=== PATIENT | female | born 1990 | race American Indian/Alaskan Native ===

== ENCOUNTER 2020-04-16 15:08 | Emergency (ER) | payer SELFPAY ==
[2020-04-16 15:24] VITALS: BP 123/78
[2020-04-16 17:01] LABS: Bilirubin,Urine NEG (Negative); Blood,Urine SM (Negative); Color,Urine Yellow (Yellow); Mucus,Urine FEW /HPF; Protein,Urine <15 mg/dL mg/dL (Negative)
[2020-04-16] MEDS ORDERED: FAMOTIDINE 20 MG TAB PO ONE (20:01)
[2020-04-16] MEDS ORDERED: oxyCODONE /ACETAMINOPHEN 5-325MG TAB PO ONE (20:01)
[2020-04-16] MEDS ORDERED: IBUPROFEN 600 MG TAB PO ONE (20:01)
[2020-04-16] MEDS ORDERED: ONDANSETRON 4 MG ODT TAB PO ONE (20:01)
[2020-04-16 20:37] LABS: Basophils % (Auto) 0.4 % (0.0-1.8); Eosinophils # (Auto) 0.1 K/mm3 (0.0-0.4); Eosinophils % (Auto) 0.8 % (0.0-4.3); Hematocrit 27.6 % (30.3-42.9); Hemoglobin 8.9 gm/dl (10.1-14.3); Lymphocytes # (Auto) 2.2 K/mm3 (1.2-5.4); Lymphocytes % (Auto) 22.7 % (13.4-35.0); Mean Corpuscular HGB Conc 32 % (30-34); Mean Corpuscular Volume 67 fl (79-97); Monocytes # (Auto) 0.5 K/mm3 (0.0-0.8); Monocytes % (Auto) 5.3 % (0.0-7.3); Platelet Count 540 K/mm3 (140-440); Red Blood Count 4.11 M/mm3 (3.65-5.03); Red Cell Distribution Width 21.2 % (13.2-15.2)
[2020-04-16 20:46] LABS: Albumin 3.7 g/dL (3.9-5); Blood Urea Nitrogen 13 mg/dL (7-17); Calcium 9.2 mg/dL (8.4-10.2); Hemolysis Index 0
[2020-04-16 20:57] LABS: Alanine Aminotransferase < 5 units/L (7-56); BUN/Creatinine Ratio 22
--- NOTE | 2020-04-16 21:48 | Ultrasound Report ---
EXAMINATION: Complete pelvic ultrasound, 04/16/2020 CLINICAL INFORMATION: Pelvic pain. Uterine fibroids. COMPARISON: None. FINDINGS: The uterus is enlarged measuring 16.9 x 9.7 x 13.3. The uterus is diffusely heterogeneous a nd contains multiple solid masses. The largest of these masses measures 8.1 x 7.3 cm. The endometrial complex is not clearly visualized. There is a trace amount of free pelvic fluid. The adnexal regions are not well visualized. IMPRESSION: 1. Enlarged heterogeneous uterus containing multiple masses most likely representing multiple fibroi ds. Signer Name: Joseline Bragg MD Signed: 04/16/2020 9:44 PM Workstation Name: [id number]
--- NOTE | 2020-04-16 21:57 | Emergency Department Report ---
ED Abdominal Pain HPI - General Chief Complaint: Abdominal Pain Stated Complaint: ABD PAIN Source: patient Mode of arrival: Ambulatory Limitations: No Limitations - History of Present Illness Initial Comments: Patient is a nulliparous 29-year-old -[place] female with a history of chronic uterine fibroids who presents to the ED with worsening diffuse abdominal pain with distention and nausea for the last 3 days. Patient states that she has a history of uterine fibroids and is currently on Depo-Provera injections every 3 months per her [employer] physician. Patient states that her pain in the abdomen has worsened in the last 3 days such that any movement or ambulation makes the pain worse. Patient states that she has not been able to eat or sleep because of abdominal pain and distention. Patient denies vaginal bleeding, vaginal discharge, dysuria, urinary frequency and urgency, dyspareunia, low back pain, fever, chills, cough, chest pain, shortness of breath, vomiting or diarrhea. MD Complaint: abdominal pain, other (history of chronic uterine fibroids) -: Gradual, month(s) (3) Location: suprapubic Radiation: none Migration to: no migration Severity: severe Severity scale (0 -10): 10 Quality: cramping, aching, sharp Consistency: constant Improves With: nothing Worsens With: movement Context: other (chronic uterine fibroids) Associated Symptoms: nausea, anorexia. denies: denies other symptoms, vomiting, diarrhea, fever, chills, constipation, dysuria, melena, hematuria, syncope, other - Related Data LMP Date: 03/22/20 Previous Rx's Medication Instructions Recorded Last Taken Type Naproxen 500 mg PO Q12H PRN #30 tablet 04/16/20 Unknown Rx Ondansetron [Zofran Odt] 4 mg PO Q6HR PRN #15 tab.rapdis 04/16/20 Unknown Rx tiZANidine [Zanaflex 4mg TAB] 4 mg PO Q8H PRN #21 tablet 04/16/20 Unknown Rx traMADoL [Ultram] 50 mg PO Q6HR PRN #12 tablet 04/16/20 Unknown Rx Allergies Allergy/AdvReac Type Severity Reaction Status Date / Time No Known Allergies Allergy Unverified 04/16/20 15:20 ED Review of Systems ROS: Stated complaint: ABD PAIN Other details as noted in HPI Constitutional: denies: chills, fever Eyes: denies: eye pain, eye discharge, vision change ENT: denies: ear pain, throat pain Respiratory: denies: cough, shortness of breath, wheezing Cardiovascular: denies: chest pain, palpitations Endocrine: no symptoms reported Gastrointestinal: abdominal pain (Periumbilical and suprapubic), nausea. denies: vomiting, diarrhea, constipation, hematemesis, hematochezia Genitourinary: denies: urgency, dysuria, frequency, hematuria, discharge, abnormal menses, dyspareunia Musculoskeletal: arthralgia (posterior neck muscle pain), myalgia. denies: back pain, joint swelling Skin: denies: rash, lesions Neurological: denies: headache, weakness, paresthesias Psychiatric: denies: anxiety, depression Hematological/Lymphatic: denies: easy bleeding, easy bruising ED Past Medical Hx - Past Medical History Previous Medical History?: Yes Additional medical history: FIBRIODS - Surgical History Past Surgical History?: No - Medications Home Medications: Home Medications Medication Instructions Recorded Confirmed Last Taken Type Naproxen 500 mg PO Q12H PRN #30 tablet 04/16/20 Unknown Rx Ondansetron [Zofran Odt] 4 mg PO Q6HR PRN #15 tab.rapdis 04/16/20 Unknown Rx tiZANidine [Zanaflex 4mg TAB] 4 mg PO Q8H PRN #21 tablet 04/16/20 Unknown Rx traMADoL [Ultram] 50 mg PO Q6HR PRN #12 tablet 04/16/20 Unknown Rx ED Physical Exam - General Limitations: No Limitations General appearance: alert, in no apparent distress - Head Head exam: Present: atraumatic, normocephalic, normal inspection - Eye Eye exam: Present: normal appearance, PERRL, EOMI Pupils: Present: normal accommodation - ENT ENT exam: Present: normal exam, normal orophraynx, mucous membranes moist, TM's normal bilaterally, normal external ear exam - Neck Neck exam: Present: normal inspection, tenderness (Palpable cervical paraspinal musculoskeletal tenderness), full ROM - Respiratory Respiratory exam: Present: normal lung sounds bilaterally. Absent: respiratory distress, wheezes, rales, rhonchi, chest wall tenderness, accessory muscle use, decreased breath sounds, prolonged expiratory - Cardiovascular Cardiovascular Exam: Present: regular rate, normal rhythm, normal heart sounds. Absent: systolic murmur, diastolic murmur, rubs, gallop - GI/Abdominal GI/Abdominal exam: Present: soft, tenderness (Palpable diffuse abdominal tenderness due to a grossly palpable tender mass extending from the suprapubic to periumbilical area), normal bowel sounds, mass (Large palpable tender mass in the abdomen extending from the suprapubic to the periumbilical area). Absent: guarding, rebound - Bi-manual exam: Present: other (Pelvic exam deferred) - Extremities Exam Extremities exam: Present: normal inspection, full ROM, normal capillary refill. Absent: pedal edema, joint swelling, calf tenderness, other - Back Exam Back exam: Present: normal inspection, full ROM. Absent: tenderness, CVA tenderness (R), CVA tenderness (L), muscle spasm, paraspinal tenderness, verte bral tenderness - Neurological Exam Neurological exam: Present: alert, oriented X3, CN II-XII intact, normal gait, reflexes normal - Psychiatric Psychiatric exam: Present: normal affect, normal mood - Skin Skin exam: Present: warm, dry, intact, normal color. Absent: rash ED Course Vital Signs 04/16/20 15:22 Temperature 98.5 F Pulse Rate 99 H Respiratory 18 Rate Blood Pressure 123/78 [Right] O2 Sat by Pulse 99 Oximetry ED Medical Decision Making - Lab Data Result diagrams: 04/16/20 20:12 04/16/20 20:12 - Radiology Data Radiology results: report reviewed, [place] [id number] Ultrasound Report Signed Patient: ILAN GILLESPIE MR#: [id number] 8 : 1990 Acct:[id number] Age/Sex: 29 / F ADM Date: 04/16/20 Loc: ED Attending Dr: Ordering Physician: ROSE MARIE SANCHEZ Date of Service: 04/16/20 Procedure(s): US pelvic complete Accession Number(s): [id number] cc: ROSE MARIE SANCHEZ EXAMINATION: Complete pelvic ultrasound, 04/16/2020 CLINICAL INFORMATION: Pelvic pain. Uterine fibroids. COMPARISON: None. FINDINGS: The uterus is enlarged measuring 16.9 x 9.7 x 13.3. The uterus is diffusely heterogeneous and contains multiple solid masses. The largest of these masses measures 8.1 x 7.3 cm. The endometrial complex is not clearly visualized. There is a trace amount of free pelvic fluid. The adnexal regions are not well visualized. IMPRESSION: 1. Enlarged heterogeneous uterus containing multiple masses most likely representing multiple fibroids. Signer Name: Joseline Bragg MD Signed: 04/16/2020 9:44 PM Workstation Name: [id number] Transcribed By: EB Dictated By: Joseline Bragg MD Electronically Authenticated By: Joseline Bragg MD Signed Date/Time: 04/16/202143 DD/ 40 TD/TT: - Medical Decision Making This is a nulliparous 29-year-old -[place] female with a history of c hronic uterine fibroids who presents to the ED with worsening diffuse abdominal pain with distention and nausea for the last 3 days. Patient states that she has a history of uterine fibroids and is currently on Depo-Provera injections every 3 months per her [employer] physician. Patient states that her pain in the abdomen has worsened in the last 3 days such that any movement or ambulation makes the pain worse. Patient states that she has not been able to eat or sleep because of abdominal pain and distention. In the ED, patient is alert and oriented x3 and is not in distress. Patient was treated for pain in the ED and lab test results were reviewed and are all nonactionable. Pelvic ultrasound showed enlarged heterogeneous uterus containing multiple masses most likely representing multiple fibroids. On reevaluation, patient pain is well controlled with medications. Patient was discharged home on pain medications and given a referral to the [employer] physician on-call Dr. Lazo for further evaluation and treatment. Patient was advised to return to the ED immediately if symptoms get worse. - Differential Diagnosis Uterine fibroids; ; UTI; constipation; neoplasm Critical care attestation.: If time is entered above; I have spent that time in minutes in the direct care of this critically ill patient, excluding procedure time. ED Disposition Clinical Impression: Leiomyomatosis, Cervical paraspinous muscle spasm Abdominal pain Qualifiers: Abdominal location: lower abdomen, unspecified Qualified Code(s): R10.30 - Lower abdominal pain, unspecified Disposition: - TO HOME OR SELFCARE Is pt being admited?: No Does the pt Need Aspirin: No Condition: Stable Instructions: Abdominal Pain (ED), Uterine Fibroids (ED), Cervical Sprain (ED) Additional Instructions: Take medication with food, drink plenty of fluids and follow-up with your [employer] physician in 7 to 10 days for reevaluation. Return to the ED immediately if symptoms get worse. Prescriptions: Naproxen 500 mg PO Q12H PRN #30 tablet PRN Reason: Pain , Severe (7-10) traMADoL [Ultram] 50 mg PO Q6HR PRN #12 tablet PRN Reason: Pain tiZANidine [Zanaflex 4mg TAB] 4 mg PO Q8H PRN #21 tablet PRN Reason: Muscle Spasm Ondansetron [Zofran Odt] 4 mg PO Q6HR PRN #15 tab.rapdis PRN Reason: Nausea Referrals: [facility] [Provider Group] - 3-5 Days YOAN LAOZ MD [Staff Physician] - 3-5 Days Time of Disposition: 22:10 Print Language: SETSWANA
== END 2020-04-16 22:40 | disposition home or self-care (01) ==
LOC: ED 15:08
DX: D48.1 Neoplasm of uncertain behavior of connective and other soft tissue (principal); M62.838 Other muscle spasm; R10.84 Generalized abdominal pain; Z79.899 Other long term (current) drug therapy
CPT/HCPCS: 36415; 76856; 80053; 81001; 84703; 85025; Q0162

== ENCOUNTER 2021-10-13 20:15 | Emergency (ER) | payer SELFPAY ==
[2021-10-13] MEDS ORDERED: SODIUM CHLORIDE 0.9% 1000 ML 1,000 ML IV ONE (21:49)
--- NOTE | 2021-10-13 22:34 | Cat Scan Report ---
CT head/brain wo con INDICATION: Syncope. TECHNIQUE: All CT scans at this location are performed using CT dose reduction for ALARA by means of automated e xposure control. COMPARISON: None available. FINDINGS: There is no evidence of hemorrhage, hydrocephalus, brain edema, or mass effect/mass lesion. There is overall normal brain formation and brain volume for the patient's age. Ventricular and cisternal/sulc al size is normal for age. The included paranasal sinuses and mastoid air cells are clear. The orbits appear unremarkable. IMPRESSION: 1. No acute intracranial abnormality. Signer Name: Deo Perez MD Signed: 10/13/2021 10:30 PM Workstation Name: [id number]
[2021-10-13 22:56] LABS: Hematocrit 24.8 % (30.3-42.9); Hemoglobin 7.4 gm/dl (10.1-14.3); Mean Corpuscular HGB Conc 30 % (30-34); Platelet Count 297 K/mm3 (140-440); Red Blood Count 4.16 M/mm3 (3.65-5.03)
[2021-10-13 23:15] LABS: Mean Corpuscular Volume 60 fl (79-97); Red Cell Distribution Width 24.2 % (13.2-15.2)
[2021-10-13 23:21] LABS: Alanine Aminotransferase 6 units/L (7-56); Albumin 3.8 g/dL (3.9-5); Blood Urea Nitrogen 9 mg/dL (7-17); Calcium 8.5 mg/dL (8.4-10.2); Hemolysis Index 0
[2021-10-13 23:23] LABS: BUN/Creatinine Ratio 13
[2021-10-13 23:33] LABS: Eosinophils # (Auto) 0.1 K/mm3 (0.0-0.4); Monocytes # (Auto) 0.4 K/mm3 (0.0-0.8); Monocytes % (Auto) 4.4 % (0.0-7.3)
[2021-10-13 23:35] LABS: Basophils % (Auto) 0.4 % (0.0-1.8); Lymphocytes # (Auto) 1.4 K/mm3 (1.2-5.4); Lymphocytes % (Auto) 16.8 % (13.4-35.0)
--- NOTE | 2021-10-13 23:35 | XRay Report ---
CHEST 1 VIEW 10/13/2021 11:28 PM INDICATION / CLINICAL INFORMATION: syncope. COMPARISON: None available. FINDINGS: SUPPORT DEVICES: None. HEART / MEDIASTINUM: No significant abnormality. LUNGS / PLEURA: No significant pulmonary or pleural abnormality. No pneumothorax. ADDITIONAL FINDINGS: No significant additional findings. IMPRESSION: 1. No acute findings. Signer Name: Deo Perez MD Signed: 10/13/2021 11:31 PM Workstation Name: [id number]
--- NOTE | 2021-10-14 00:15 | Emergency Department Report ---
ED Syncope HPI - General Chief Complaint: Syncope Stated Complaint: PASSED OUT - History of Present Illness Initial Comments: Patient is a 31-year-old -[place]aur[place] female with no past medical history presents to the ED for evaluation after she had a syncopal episode at home about 1 hour ago. Patient states that she was at a friend's house for a democrat when she walked to the bathroom but when she came back and sat down she was told that she passed out briefly. Patient states that prior to the symptoms she felt lightheaded while she came from the bathroom but did not think that she may have passed out. Patient states that this occurred while she was seated down. Patient denies alcohol consumption, dizziness, chest pain, palpitations, nausea and vomiting, change in vision, headache, head or neck injuries, back pain, abdominal pain, diarrhea or vaginal bleeding. Timing/Prior Episodes: no prior history Precipitating Factors: Positive: lightheadedness. Negative: blurred vision, confusion, diaphoresis, recent head trauma, rapid heart beat, unknown Context: sitting Loss of Consciousness: brief (seconds) Current Symptoms: denies: back to normal, blurred vision, chest pain, diaphoresis, dizziness, headache, injury, lightheadedness, loss of bladder control, loss of bowel control, motionless, nausea, pale, shallow/rapid breathing, weak/absent pulse, weakness - Related Data Allergies/Adverse Reactions: Allergies No Known Allergies Allergy (Unverified 04/16/20 15:20) Home Medications: Ambulatory Orders Naproxen 500 mg PO Q12H PRN #30 tablet 04/16/20 Ondansetron [Zofran Odt] 4 mg PO Q6HR PRN #15 tab.rapdis 04/16/20 tiZANidine [Zanaflex 4mg TAB] 4 mg PO Q8H PRN #21 tablet 04/16/20 traMADoL [Ultram] 50 mg PO Q6HR PRN #12 tablet 04/16/20 Cyanocobalamin/Folic Acid [J40-Powil Acid 2500-400 Mcg Tb] 1 each PO DAILY #60 tab 10/14/21 Ferrous Sulfate [Ferrous Sulfate 324 MG] 324 mg PO DAILY #60 tab 10/14/21 Folic Acid 1 mg PO DAILY #60 tab 10/14/21 Ondansetron [Zofran Odt] 4 mg PO Q8HR PRN #15 tab.rapdis 10/14/21 ED Review of Systems ROS: Stated complaint: PASSED OUT Other details as noted in HPI Constitutional: denies: chills, fever Eyes: denies: eye pain, eye discharge, vision change ENT: denies: ear pain, throat pain Respiratory: denies: cough, shortness of breath, wheezing Cardiovascular: syncope, other (lightheadedness). denies: chest pain, palpitations Endocrine: no symptoms reported Gastrointestinal: denies: abdominal pain, nausea, diarrhea Genitourinary: denies: urgency, dysuria, discharge Musculoskeletal: denies: back pain, joint swelling, arthralgia Skin: denies: rash, lesions Neurological: denies: headache, weakness, paresthesias Psychiatric: denies: anxiety, depression Hematological/Lymphatic: denies: easy bleeding, easy bruising ED Past Medical Hx - Past Medical History Additional medical history: FIBRIODS - Medications Home Medications: Home Medications Medication Instructions Recorded Confirmed Last Taken Type Naproxen 500 mg PO Q12H PRN #30 tablet 04/16/20 Unknown Rx Ondansetron [Zofran Odt] 4 mg PO Q6HR PRN #15 tab.rapdis 04/16/20 Unknown Rx tiZANidine [Zanaflex 4mg TAB] 4 mg PO Q8H PRN #21 tablet 04/16/20 Unknown Rx traMADoL [Ultram] 50 mg PO Q6HR PRN #12 tablet 04/16/20 Unknown Rx Cyanocobalamin/Folic Acid 1 each PO DAILY #60 tab 10/14/21 Unknown Rx [C19-Xfczq Acid 2500-400 Mcg Tb] Ferrous Sulfate [Ferrous Sulfate 324 mg PO DAILY #60 tab 10/14/21 Unknown Rx 324 MG] Folic Acid 1 mg PO DAILY #60 tab 10/14/21 Unknown Rx Ondansetron [Zofran Odt] 4 mg PO Q8HR PRN #15 tab.rapdis 10/14/21 Unknown Rx ED Physical Exam - General Limitations: No Limitations General appearance: alert, in no apparent distress - Head Head exam: Present: atraumatic, normocephalic, normal inspection - Eye Eye exam: Present: normal appearance, PERRL, EOMI Pupils: Present: normal accommodation - ENT ENT exam: Present: normal exam, normal orophraynx, mucous membranes moist, TM's normal bilaterally, normal external ear exam - Neck Neck exam: Present: normal inspection, full ROM. Absent: tenderness - Respiratory Respiratory exam: Present: normal lung sounds bilaterally. Absent: respiratory distress, wheezes, rales, rhonchi, chest wall tenderness, accessory muscle use, decreased breath sounds, prolonged expiratory - Cardiovascular Cardiovascular Exam: Present: regular rate, normal rhythm, normal heart sounds. Absent: systolic murmur, diastolic murmur, rubs, gallop - GI/Abdominal GI/Abdominal exam: Present: soft, normal bowel sounds. Absent: tenderness, guarding, rebound, hyperactive bowel sounds, hypoactive bowel sounds, organomegaly - Extremities Exam Extremities exam: Present: normal inspection, full ROM, normal capillary refill - Back Exam Back exam: Present: normal inspection, full ROM. Absent: tenderness, CVA tenderness (R), CVA tenderness (L), muscle spasm, paraspinal tenderness, vertebral tenderness - Neurological Exam Neurological exam: Present: alert, oriented X3, CN II-XII intact, normal gait, reflexes normal - Psychiatric Psychiatric exam: Present: normal affect, normal mood - Skin Skin exam: Present: warm, dry, intact, normal color. Absent: rash ED Course Vital Signs 10/13/21 10/14/21 20:28 00:28 Temperature 98.6 F Pulse Rate 81 83 Respiratory 18 12 Rate Blood Pressure 108/70 Blood Pressure 112/78 [Right] O2 Sat by Pulse 100 100 Oximetry ED Medical Decision Making - Lab Data Result diagrams: 10/13/21 22:34 10/13/21 22:34 - Radiology Data Radiology results: report reviewed, image reviewed [address] [address] Cat Scan Report Signed Patient: ILAN GILLESPIE MR#: [id number] 8 : 1990 Acct:[id number] Age/Sex: 31 / F ADM Date: 10/13/21 Loc: ED Attending Dr: Ordering Physician: ROSE MARIE SANCHEZ Date of Service: 10/13/21 Procedure(s): CT head/brain wo con Accession Number(s): [id number] cc: ROSE MARIE SANCHEZ CT head/brain wo con INDICATION: Syncope. TECHNIQUE: All CT scans at this location are performed using CT dose reduction for ALARA by means of automated exposure control. COMPARISON: None available. FINDINGS: There is no evidence of hemorrhage, hydrocephalus, brain edema, or mass effect/mass lesion. There is overall normal brain formation and brain volume for the patient's age. Ventricular and cisternal/sulcal size is normal for age. The included paranasal sinuses and mastoid air cells are clear. The orbits appear unremarkable. IMPRESSION: 1. No acute intracranial abnormality. Signer Name: Deo Perez MD Signed: 10/13/2021 10:30 PM Workstation Name: [id number] Transcribed By: EMERY Dictated By: Deo Perez MD Electronically Authenticated By: Deo Perez MD Signed Date/Time: 10/13/212229 DD/ 28 TD/TT: [facility] [address] [place] [address] XRay Report Signed Patient: ILAN GILLESPIE MR#: [id number] 8 : 1990 Acct:[id number] Age/Sex: 31 / F ADM Date: 10/13/21 Loc: ED Attending Dr: Ordering Physician: ROSE MARIE SANCHEZ Date of Service: 10/13/21 Procedure(s): XR chest 1V ap Accession Number(s): [id number] cc: ROSE MARIE SANCHEZ Fluoro Time In Minutes: CHEST 1 VIEW 10/13/2021 11:28 PM INDICATION / CLINICAL INFORMATION: syncope. COMPARISON: None available. FINDINGS: SUPPORT DEVICES: None. HEART / MEDIASTINUM: No significant abnormality. LUNGS / PLEURA: No significant pulmonary or pleural abnormality. No pneumothorax. ADDITIONAL FINDINGS: No significant additional findings. IMPRESSION: 1. No acute findings. Signer Name: Deo Perez MD Signed: 10/13/2021 11:31 PM Workstation Name: [id number] Transcribed By: EMERY Dictated By: Deo Perez MD Electronically Authenticated By: Deo Perez MD Signed Date/Time: 10/13/212330 DD/ 30 TD/TT: - Medical Decision Making This is a 31-year-old -Maur[place] female with no past medical history presents to the ED for evaluation after she had a syncopal episode at home about 1 hour ago. Patient states that she was at a friend's house for a democrat when she walked to the bathroom but when she came back and sat down she was told that she passed out briefly. Patient states that prior to the symptoms she felt lightheaded while she came from the bathroom but did not think that she may have passed out. In the ED, patient is alert and oriented x3 and is not in any distress. Patient is hemodynamically stable. Lab test results were reviewed and are all nonactionable except for H&H of 7.4 and 24.8 respectively. Chest x- ray showed no acute cardiopulmonary abnormalities or pneumonitis. Head CT scan without contrast showed no acute intracranial abnormalities or hemorrhage. On reevaluation, patient felt better, patient is hemodynamically stable, and patient will discharge home on medications and advised to follow-up with her primary care physician in 7 to 10 days for reevaluation or return to the ED immediately if symptoms get worse. - Differential Diagnosis Syncope, dehydration, anemia; viral syndrome; anxiety; seizures Critical care attestation.: If time is entered above; I have spent that time in minutes in the direct care of this critically ill patient, excluding procedure time. ED Disposition Clinical Impression: Orthostatic lightheadedness Iron deficiency anemia Qualifiers: Iron deficiency anemia type: unspecified iron deficiency Qualified Code(s): D50.9 - Iron deficiency anemia, unspecified Disposition: HOME / SELF CARE / HOMELESS Is pt being admited?: No Does the pt Need Aspirin: No Condition: Stable Instructions: Preventing Iron Deficiency Anemia, Adult, Syncope, [id number] Additional Instructions: All lab test results are reviewed and are all nonactionable except for hemoglobin and hematocrit that were low consistent with iron deficiency anemia. The head CT scan without contrast and chest x-ray reports were unremarkable. Therefore take medications with food, drink plenty of fluids and follow-up with your primary care physician in 7 to 10 days for reevaluation. Return to the ED immediately if symptoms get worse. Prescriptions: Cyanocobalamin/Folic Acid [V68-Ighkl Acid 2500-400 Mcg Tb] 1 each PO DAILY #60 tab Ferrous Sulfate [Ferrous Sulfate 324 MG] 324 mg PO DAILY #60 tab Folic Acid 1 mg PO DAILY #60 tab Ondansetron [Zofran Odt] 4 mg PO Q8HR PRN #15 tab.rapdis PRN Reason: Nausea Referrals: MADELAINE ROMAN MD [Staff Physician] - 7-10 days MIRANDA ALLISON MD [Staff Physician] - 7-10 days Time of Disposition: 00:13 Print Language: ROMANIAN
[2021-10-14 00:29] VITALS: BP 112/78
--- NOTE | 2021-10-14 15:18 | Electrocardiograph Report ---
[facility] Test Date: 2021-10-13 Test Time: 20:30:26 Pat Name: ILAN GILLESPIE Department: Room: Gender: F Insurance Account Representative: CHRISTOPHER : 1990 Requested By: ACOSTA GUTIERREZ Order Number: [id number] Reading MD: Andrzej Cohen Measurements Intervals [place] Rate: 74 P: 20 [place]: 115 QRS: 69 QRSD: 70 T: 4 QT: QTc: 0 Interpretive Statements Sinus rhythm Low voltage, precordial leads NSTW'S No previous ECG available for comparison Electronically Signed On 10-14-2021 15:17:47 EDT by Andrzej Cohen
== END 2021-10-14 00:29 | disposition home or self-care (01) ==
LOC: ED 20:15
DX: D50.9 Iron deficiency anemia, unspecified (principal); R42 Dizziness and giddiness
CPT/HCPCS: 36415; 70450; 71045; 80053; 84484; 84703; 85025; 93005; 96360; 99284